=== PATIENT | male | born 1980 | race Two or more races ===

== ENCOUNTER 2019-09-24 12:48 | Inpatient (IN) | payer MEDICAID ==
[~2019-09-24] VITALS: Ht 162.6 cm; Wt 108.0 kg
[2019-09-24 16:00] VITALS: BP 155/75
[2019-09-24] MEDS ORDERED: ACET325C7 PO (16:08)
[2019-09-24] MEDS ORDERED: AMLO10TA4 PO (16:09)
[2019-09-24] MEDS ORDERED: LOSA50TA39 PO (16:10)
[2019-09-24] MEDS ORDERED: HYDR-4077 PO (16:13)
[2019-09-24] MEDS ORDERED: Z GUARD REMEDY PASTE 57 GM TUBE TOP PRN (16:15)
[2019-09-24] MEDS ORDERED: ATOR40TA PO (16:48)
--- NOTE | 2019-09-24 17:51 | NUR ---
PATIENT ADMITTED FROM [facility] POST ACUTE CVA, PATIENT IS ALERT,ORIENTED X4, NO SOB, RESP EVEN NONLABORD,SKIN WARM AND DRY TO TOUCH, AMBULATORY WITH ASSIST, RIGHT ARM WEAKNESS, NO SIGNS AND SYMPTOMS OF ASPIRATION NOTED, DR CORNEJO AWARE TO RECONSILE MEDS NO DISTRESS NOTED AT THIS TIME
[2019-09-24] MEDS ORDERED: ZOLPIDEM 5 MG TABLET PO PRN (18:00)
[2019-09-24] MEDS ORDERED: HYDROCODONE/APAP 5-325MG TABLET PO PRN (18:00)
[2019-09-24] MEDS ORDERED: ACETAMINOPHEN 325 MG TABLET PO PRN (18:00)
--- NOTE | 2019-09-24 18:08 | NUR ---
patient refused to check his body, however stated that he has no skin issues at this time.
[2019-09-24 20:17] VITALS: BP 153/79
[2019-09-24] MEDS: ATORVASTATIN 40 MG TABLET PO SCH (20:58)
[2019-09-24] MEDS: hydrALAZINE HCL 25 MG TABLET PO SCH (21:26)
--- NOTE | 2019-09-25 01:51 | NUR ---
aaox4 resting in bed upon initial rounds. VSS. Tolerated po meds well. Needs attended. Kept comfortable. Right side weakness noted. No acute distress noted. Voiding without difficulty. Siderails up for safety. Fall precautions maintained.
[2019-09-25 05:12] VITALS: BP 152/83
[2019-09-25] MEDS: hydrALAZINE HCL 25 MG TABLET PO SCH ×3 (05:46→21:28)
--- NOTE | 2019-09-25 06:47 | NUR ---
End of shift note: Quiet night. OOB to the BR with minimal assist. Voiding freely. Kept comfortable. BP 152/83 Hydralazine given. Patient asymptomatic. Slept well throughout the night.
[2019-09-25 06:57] LABS: BILIRUBIN,TOTAL 0.7 mg/dL (0.2-1.0); CREATININE 1.4 mg/dL (0.6-1.3); POTASSIUM 4.1 mmol/L (3.5-5.1); TOTAL PROTEIN, SERUM 6.8 g/dL (6.4-8.2)
--- NOTE | 2019-09-25 07:50 | NUR ---
Patient resting in bed with eyes closed, no complaints of pain at this time, no signs of distress noted, call light in reach, bed locked and in lowest position, all needs met at this time
[2019-09-25 08:00] VITALS: BP 152/79
[2019-09-25 09:16] LABS: BASOPHILS # (AUTO) 0.1 K/uL (0.0-8.0); BASOPHILS % (AUTO) 0.7 % (0.0-2.0); EOSINOPHILS # (AUTO) 0.2 K/uL (0.0-0.7); EOSINOPHILS % (AUTO) 2.4 % (0.0-7.0); HEMATOCRIT 42.8 % (36.7-47.1); HEMOGLOBIN 13.8 g/dL (12.5-16.3); LYMPHOCYTES # (AUTO) 1.4 K/uL (20.0-40.0); LYMPHOCYTES % (AUTO) 16.9 % (20.5-51.5); MEAN CORPUSCULAR HEMOGLOBIN 26.8 uug (23.8-33.4); MEAN CORPUSCULAR HGB CONC 32 g/dL (32.5-36.3); MONOCYTES # (AUTO) 0.5 K/uL (2.0-10.0); MONOCYTES % (AUTO) 5.8 % (0.0-11.0); NEUTROPHILS # (AUTO) 6.1 K/uL (1.8-8.9); NEUTROPHILS % (AUTO) 74.2 % (38.5-71.5); PLATELET COUNT (AUTO) 50 K/uL (152-348); RED BLOOD CELL COUNT(AUTO) 5.15 MIL/uL (4.06-5.63); WHITE BLOOD COUNT (AUTO) 8.2 K/uL (3.6-10.2)
[2019-09-25] MEDS: LOSARTAN POTASSIUM 50 MG TABLET PO SCH (09:23)
[2019-09-25] MEDS: AMLODIPINE 10 MG TABLET PO SCH (09:24)
[2019-09-25 10:00] LABS: BAND % (MANUAL) 2 % (0-10); EOSINOPHILS % (MANUAL) 4 % (0-8); LYMPHOCYTES % (MANUAL) 18 % (20-40); MONOCYTES % (MANUAL) 7 % (2-10); NEUTROPHILS % (MANUAL) 69 % (42-75)
[2019-09-25 16:14] VITALS: BP 130/73
--- NOTE | 2019-09-25 19:18 | NUR ---
abnormal platelets noted and MD Bell made aware with not new orders
--- NOTE | 2019-09-25 20:02 | NUR ---
Awake alert and oriented x4 Needs attended. No acute distress noted. In good spirits. Kept comfortable. VSS. Will monitor patient.
[2019-09-25 20:47] VITALS: BP 146/77
[2019-09-25] MEDS: ATORVASTATIN 40 MG TABLET PO SCH (20:53)
[2019-09-26] MEDS: hydrALAZINE HCL 25 MG TABLET PO SCH ×3 (05:33→21:12)
[2019-09-26 05:43] VITALS: BP 179/84
--- NOTE | 2019-09-26 06:45 | NUR ---
End of shift note: AAOx4 OOB to the BR with supervision. No acute distress noted. BP 179/84 HR 85 denies any headache or any discomfort. Hydralazine given. Will monitor patient's BP. Needs attended. Fall precautions maintained. Siderails up for safety.
[2019-09-26] MEDS: LOSARTAN POTASSIUM 50 MG TABLET PO SCH (09:01)
[2019-09-26] MEDS: AMLODIPINE 10 MG TABLET PO SCH (09:02)
[2019-09-26 12:45] VITALS: BP 140/72
[2019-09-26 15:25] VITALS: BP 157/65
[2019-09-26 20:09] VITALS: BP 155/77
[2019-09-26] MEDS: ATORVASTATIN 40 MG TABLET PO SCH (20:28)
--- NOTE | 2019-09-26 21:46 | NUR ---
Received pt resting in bed and watching tv. AAO x4, Upper Sorbian speaking. Able to make needs known. No acute distress noted. Denies pain/ discomfort. Due meds given as ordered. Safety measures maintained. Call light and personal items within reach. Will continue to monitor.
[2019-09-27 04:15] VITALS: BP 144/79
[2019-09-27] MEDS: hydrALAZINE HCL 25 MG TABLET PO SCH ×3 (05:38→21:47)
[2019-09-27 06:12] LABS: BILIRUBIN,TOTAL 0.4 mg/dL (0.2-1.0); CREATININE 1.2 mg/dL (0.6-1.3); PHOSPHOROUS 4.6 mg/dL (2.5-4.9); POTASSIUM 3.9 mmol/L (3.5-5.1); TOTAL PROTEIN, SERUM 6.9 g/dL (6.4-8.2)
[2019-09-27 06:32] LABS: EOSINOPHILS # (AUTO) 0.2 K/uL (0.0-0.7); LYMPHOCYTES # (AUTO) 1.1 K/uL (20.0-40.0); MEAN CORPUSCULAR HEMOGLOBIN 26.6 uug (23.8-33.4); MONOCYTES # (AUTO) 0.4 K/uL (2.0-10.0)
[2019-09-27 08:00] VITALS: BP 143/72
[2019-09-27 08:11] LABS: BASOPHILS % (AUTO) 0.7 % (0.0-2.0); EOSINOPHILS % (AUTO) 2.6 % (0.0-7.0); HEMOGLOBIN 13.2 g/dL (12.5-16.3); LYMPHOCYTES % (AUTO) 15.7 % (20.5-51.5); MEAN CORPUSCULAR HGB CONC 32 g/dL (32.5-36.3); MEAN CORPUSCULAR VOLUME 82.9 fL (73.0-96.2); MONOCYTES % (AUTO) 6.1 % (0.0-11.0); NEUTROPHILS # (AUTO) 5.1 K/uL (1.8-8.9); NEUTROPHILS % (AUTO) 74.9 % (38.5-71.5); RED BLOOD CELL COUNT(AUTO) 4.95 MIL/uL (4.06-5.63); WHITE BLOOD COUNT (AUTO) 6.8 K/uL (3.6-10.2)
[2019-09-27 08:19] LABS: PLATELET COUNT (AUTO) 10 K/uL (152-348)
[2019-09-27] MEDS: LOSARTAN POTASSIUM 50 MG TABLET PO SCH (09:28)
[2019-09-27] MEDS: AMLODIPINE 10 MG TABLET PO SCH (09:29)
[2019-09-27 11:19] LABS: EOSINOPHILS % (MANUAL) 3 % (0-8); LYMPHOCYTES % (MANUAL) 15 % (20-40); MONOCYTES % (MANUAL) 6 % (2-10); NEUTROPHILS % (MANUAL) 76 % (42-75)
--- NOTE | 2019-09-27 13:21 | NUR ---
INDIVIDUALIZED PLAN OF CARE
--- NOTE | 2019-09-27 14:08 | NUR ---
STEFANO PHQ9 Post Stroke Depression Survey: STEFANO conducted the Post Stroke Depression Survey and patient scored a level (0).
[2019-09-27 16:54] VITALS: BP 147/78
[2019-09-27 20:00] VITALS: BP 169/77
[2019-09-27 21:40] VITALS: BP 139/69
[2019-09-27] MEDS: ATORVASTATIN 40 MG TABLET PO SCH (21:47)
--- NOTE | 2019-09-27 22:00 | NUR ---
RECEIVED PATIENT IN BED, ALERT AND VERBALLY RESPONSIVE. AFEBRILE. NO RESPIRATORY DISTRESS. NO COMPLAINTS OF PAIN AT THIS TIME. PATIENT RECEIVED DUE MEDICATIONS. TOLERATED WELL. NO CHANGES IN LEVEL OF CONSCIOUSNESS OR SPEECH OBSERVED. FALL AND SAFETY PRECAUTIONS OBSERVED. WILL CONTINUE TO ATTEND AND ANTICIPATE NEEDS. WILL CONTINUE TO MONITOR PATIENT.
[2019-09-28 05:15] VITALS: BP 169/91
[2019-09-28] MEDS: hydrALAZINE HCL 25 MG TABLET PO SCH ×3 (05:19→21:58)
--- NOTE | 2019-09-28 05:20 | NUR ---
PATIENT ASLEEP AT THIS TIME, HAD LONG INTERVALS OF SLEEP THROUGH THE NIGHT. NO COMPLAINTS OF PAIN AT THIS TIME. CHECKED PATIENT'S VITAL SIGNS AND NOTED TO HAVE ELEVATED BP OF 169/91. PATIENT DENIES DIZZINESS, LIGHTHEADEDNESS, AND OTHER S/S HYPERTENSION. PROVIDED DIM, AND QUIET ENVIRONMENT. ADMINISTERED HYDRALAZINE ORDERED. WILL RECHECK BLOOD PRESSURE. ALL NEEDS ANTICIPATED AND ATTENDED. FALL AND SAFETY PRECAUTIONS OBSERVED. KEPT PATIENT WARM, DRY, AND COMFORTABLE.
[2019-09-28 06:04] VITALS: BP 154/87
--- NOTE | 2019-09-28 06:05 | NUR ---
RECHECKED VITAL SIGNS, BP:154/87 P:78 R:18 T:98.9 O2 SAT: 96% ON ROOM AIR PAIN:0/10
[2019-09-28] MEDS: LOSARTAN POTASSIUM 50 MG TABLET PO SCH (10:07)
[2019-09-28] MEDS: AMLODIPINE 10 MG TABLET PO SCH (10:07)
[2019-09-28 11:14] LABS: BASOPHILS % (AUTO) 0.6 % (0.0-2.0); EOSINOPHILS # (AUTO) 0.2 K/uL (0.0-0.7); EOSINOPHILS % (AUTO) 2.6 % (0.0-7.0); HEMATOCRIT 41.1 % (36.7-47.1); HEMOGLOBIN 13.2 g/dL (12.5-16.3); LYMPHOCYTES # (AUTO) 0.8 K/uL (20.0-40.0); LYMPHOCYTES % (AUTO) 12.1 % (20.5-51.5); MEAN CORPUSCULAR HEMOGLOBIN 26.7 uug (23.8-33.4); MEAN CORPUSCULAR HGB CONC 32 g/dL (32.5-36.3); MEAN CORPUSCULAR VOLUME 82.7 fL (73.0-96.2); MONOCYTES # (AUTO) 0.4 K/uL (2.0-10.0); MONOCYTES % (AUTO) 6.2 % (0.0-11.0); NEUTROPHILS % (AUTO) 78.5 % (38.5-71.5); RED BLOOD CELL COUNT(AUTO) 4.97 MIL/uL (4.06-5.63); WHITE BLOOD COUNT (AUTO) 6.4 K/uL (3.6-10.2)
[2019-09-28 11:25] LABS: PLATELET COUNT (AUTO) 12 K/uL (152-348)
[2019-09-28 12:00] VITALS: BP 134/74
[2019-09-28 12:27] LABS: LYMPHOCYTES % (MANUAL) 11 % (20-40); MONOCYTES % (MANUAL) 6 % (2-10); NEUTROPHILS % (MANUAL) 83 % (42-75)
--- NOTE | 2019-09-28 13:37 | NUR ---
Informed Tali Zhao STORE DIRECTOR regarding latest platelet result, and said will wait for diabetic educator to see patient. Patient remains alert, oriented x 3, not in any form of distress. No noted signs or symptoms of bleeding. Patient denies any pain or discomfort. Vital signs stable.
[2019-09-28] MEDS ORDERED: THIAMINE HCL 100 MG TABLET PO ONE (19:00)
--- NOTE | 2019-09-28 19:27 | NUR ---
Received a call from Dr. Nirmal MD made aware regarding platelet result of 12. Per no need to transfuse unless platelet is less than 10 and that she put in some orders. Endorsed accordingly to second shift supervisor nurse.
--- NOTE | 2019-09-28 19:50 | NUR ---
Awake, in bed. Denies any pain/discomforts at this time. [facility] assessment done. No change noted. Safety measures and fall precaution maintained. Continue care as planned.
[2019-09-28 20:00] VITALS: BP 143/76
[2019-09-28] MEDS: CYANOCOBALAMIN 1,000 MCG TABLET PO SCH (21:01)
[2019-09-28] MEDS: FOLIC ACID 1 MG TABLET PO SCH (21:02)
[2019-09-28] MEDS: CALCIUM CARB/VITAMIN D 500MG-200UNITS TABLET PO SCH (21:02)
[2019-09-28] MEDS: ATORVASTATIN 40 MG TABLET PO SCH (21:02)
[2019-09-28] MEDS: methylPREDNISolone SOD SUCC 125 MG/2 ML VIAL IV SCH ×2 (21:03→21:42)
--- NOTE | 2019-09-28 21:40 | NUR ---
IV started on left hand with G# 22 x 1 attempt. Pt tolerated well.
[2019-09-29 05:00] VITALS: BP 162/73
[2019-09-29] MEDS: methylPREDNISolone SOD SUCC 125 MG/2 ML VIAL IV SCH ×3 (05:14→21:36)
[2019-09-29] MEDS: hydrALAZINE HCL 25 MG TABLET PO SCH ×3 (05:20→21:41)
[2019-09-29] MEDS: PANTOPRAZOLE SODIUM 40 MG TABLET.DR PO SCH (06:00)
--- NOTE | 2019-09-29 06:14 | NUR ---
Shift End Report: VS stable. HL on LH intact and patent. No s/s of infiltration. Voided well per urinal. No complaint of pain/discomforts presented all night. All needs attended and met. Slept good. No significant event reported all night. Continue current rehab plan of care.
[2019-09-29 06:15] LABS: BASOPHILS % (AUTO) 0.2 % (0.0-2.0); EOSINOPHILS % (AUTO) 0.1 % (0.0-7.0); HEMATOCRIT 43.4 % (36.7-47.1); HEMOGLOBIN 14.1 g/dL (12.5-16.3); LYMPHOCYTES # (AUTO) 0.6 K/uL (20.0-40.0); LYMPHOCYTES % (AUTO) 9.6 % (20.5-51.5); MEAN CORPUSCULAR HGB CONC 33 g/dL (32.5-36.3); MEAN CORPUSCULAR VOLUME 82.9 fL (73.0-96.2); MONOCYTES % (AUTO) 0.8 % (0.0-11.0); NEUTROPHILS # (AUTO) 5.2 K/uL (1.8-8.9); NEUTROPHILS % (AUTO) 89.3 % (38.5-71.5); RED BLOOD CELL COUNT(AUTO) 5.24 MIL/uL (4.06-5.63); WHITE BLOOD COUNT (AUTO) 5.9 K/uL (3.6-10.2)
[2019-09-29 06:25] LABS: CREATININE 1.3 mg/dL (0.6-1.3); POTASSIUM 4.2 mmol/L (3.5-5.1)
[2019-09-29 06:37] LABS: PLATELET COUNT (AUTO) 13 K/uL (152-348)
[2019-09-29 07:30] VITALS: BP 153/79
[2019-09-29 08:35] LABS: LYMPHOCYTES % (MANUAL) 9 % (20-40); MONOCYTES % (MANUAL) 2 % (2-10); NEUTROPHILS % (MANUAL) 89 % (42-75)
[2019-09-29] MEDS: FOLIC ACID 1 MG TABLET PO SCH (09:30)
[2019-09-29] MEDS: CALCIUM CARB/VITAMIN D 500MG-200UNITS TABLET PO SCH ×2 (09:30→21:40)
[2019-09-29] MEDS: CYANOCOBALAMIN 1,000 MCG TABLET PO SCH (09:30)
[2019-09-29] MEDS: LOSARTAN POTASSIUM 50 MG TABLET PO SCH (09:32)
[2019-09-29] MEDS: AMLODIPINE 10 MG TABLET PO SCH (09:32)
[2019-09-29 17:30] VITALS: BP 146/73
[2019-09-29 21:11] VITALS: BP 150/69
[2019-09-29] MEDS: ATORVASTATIN 40 MG TABLET PO SCH (21:39)
--- NOTE | 2019-09-29 23:59 | NUR ---
awake alert and oriented x4 No acute distress noted. OOB to the BR with assist. Voiding well. Compliant with care. Needs attended. Will monitor patient. No acute distress noted. Kept comfortable.VSS.
[2019-09-30 01:10] VITALS: BP 140/68
[2019-09-30 03:54] VITALS: BP 141/67
[2019-09-30 05:56] LABS: HEMATOCRIT 37.3 % (36.7-47.1); HEMOGLOBIN 12.3 g/dL (12.5-16.3); LYMPHOCYTES # (AUTO) 0.6 K/uL (20.0-40.0); MEAN CORPUSCULAR HEMOGLOBIN 27.1 uug (23.8-33.4); MEAN CORPUSCULAR HGB CONC 33 g/dL (32.5-36.3); MEAN CORPUSCULAR VOLUME 82.1 fL (73.0-96.2); MONOCYTES # (AUTO) 0.2 K/uL (2.0-10.0); MONOCYTES % (AUTO) 1.6 % (0.0-11.0); NEUTROPHILS % (AUTO) 92.4 % (38.5-71.5); RED BLOOD CELL COUNT(AUTO) 4.55 MIL/uL (4.06-5.63); WHITE BLOOD COUNT (AUTO) 9.7 K/uL (3.6-10.2)
[2019-09-30] MEDS: methylPREDNISolone SOD SUCC 125 MG/2 ML VIAL IV SCH ×3 (05:56→21:00)
[2019-09-30] MEDS: hydrALAZINE HCL 25 MG TABLET PO SCH ×3 (05:57→21:00)
[2019-09-30 06:10] LABS: PLATELET COUNT (AUTO) 13 K/uL (152-348)
[2019-09-30] MEDS: PANTOPRAZOLE SODIUM 40 MG TABLET.DR PO SCH (06:34)
--- NOTE | 2019-09-30 06:41 | NUR ---
End of shift note: Slept at short intervals. AAOx3-4 On continous O2 @ 2L via nasal cannula pulse ox 96% Needs attended. Patient still on IV ABT tolerated as well, no ill effects noted. Kept comfortable. Voided in urinal. Small BM noted this shift via bedside commode. VSS. Addendum: 09/30/19 at 0647 by LYNDA TORREZ RN wrong patient notes!!
--- NOTE | 2019-09-30 06:47 | NUR ---
End of shift note: Quiet night. No acute distress noted. VSS. Patient on Solumedrol IV given at scheduled times via right arm heplock. No acute distress noted. Will monitor patient.
[2019-09-30 06:49] LABS: CREATININE 1.3 mg/dL (0.6-1.3); MAGNESIUM 1.8 mg/dL (1.8-2.4); PHOSPHOROUS 4.5 mg/dL (2.5-4.9); POTASSIUM 3.9 mmol/L (3.5-5.1)
[2019-09-30 07:30] VITALS: BP 133/77
[2019-09-30 08:16] LABS: LYMPHOCYTES % (MANUAL) 12 % (20-40); MONOCYTES % (MANUAL) 2 % (2-10); NEUTROPHILS % (MANUAL) 86 % (42-75)
[2019-09-30] MEDS: CALCIUM CARB/VITAMIN D 500MG-200UNITS TABLET PO SCH ×2 (09:22→20:33)
[2019-09-30] MEDS: AMLODIPINE 10 MG TABLET PO SCH (09:23)
[2019-09-30] MEDS: FOLIC ACID 1 MG TABLET PO SCH (09:23)
[2019-09-30] MEDS: LOSARTAN POTASSIUM 50 MG TABLET PO SCH (09:24)
[2019-09-30] MEDS: CYANOCOBALAMIN 1,000 MCG TABLET PO SCH (09:24)
--- NOTE | 2019-09-30 12:29 | NUR ---
Received patient awake in bed in stable condition. Speaks thai. Continue solo medrol for low platelet count. plt ct-13 MD aware. will continue monitor
[2019-09-30 15:56] VITALS: BP 137/68
--- NOTE | 2019-09-30 19:40 | NUR ---
Awake, watching TV at this time. Denies any pain/discomforts at this time. HL RH intact and patent. No s/s of on filtration. Safety measure and fall precaution maintained. Continue care as planned.
[2019-09-30] MEDS: ATORVASTATIN 40 MG TABLET PO SCH (20:32)
[2019-09-30] MEDS ORDERED: diphenhydrAMINE 50 MG/1 ML VIAL IV ONE (21:00)
[2019-09-30] MEDS ORDERED: ACETAMINOPHEN 325 MG TABLET PO ONE (21:00)
[2019-09-30 21:51] VITALS: BP 149/71
--- NOTE | 2019-09-30 23:55 | NUR ---
Obtained consent for Blood transfusion. All concerns and questions answered and explained by LEGAL SUMMER INTERN Barbara in Albanian language and patient verbalized understanding.
[2019-10-01] VITALS (9 sets, daily range): BP systolic 119–157; BP diastolic 62–79
[2019-10-01] MEDS ORDERED: ACETAMINOPHEN 325 MG TABLET PO ONE (00:45)
[2019-10-01] MEDS ORDERED: diphenhydrAMINE 50 MG/1 ML VIAL IV ONE (01:00)
--- NOTE | 2019-10-01 01:10 | NUR ---
Re start another IV site with G#20 x 1 attempt. Patient tolerated procedure well.
--- NOTE | 2019-10-01 01:21 | NUR ---
Plasma transfusion initiated as ordered, double checked with another RN. VS taken and recorded. Will monitor.
--- NOTE | 2019-10-01 01:36 | NUR ---
VS taken and recorded. No s/s of adverse reaction noted. Will continue to monitor.
[2019-10-01] MEDS: hydrALAZINE HCL 25 MG TABLET PO SCH ×2 (05:31→15:09)
--- NOTE | 2019-10-01 06:01 | NUR ---
Shift End Report: Vs stable. Slept good, Plasma transfusion transfused/completed without s/s of adverse reaction noted. Slept well. No complaint of pain presented. All needs attended and met. Continue current rehab plan of care.
[2019-10-01 06:31] LABS: CREATININE 1.4 mg/dL (0.6-1.3); MAGNESIUM 2.4 mg/dL (1.8-2.4); PHOSPHOROUS 5.1 mg/dL (2.5-4.9); POTASSIUM 4.2 mmol/L (3.5-5.1)
[2019-10-01 06:39] LABS: THYROID STIMULATING HORMONE 0.277 mIU/mL (0.358-3.740)
[2019-10-01 06:45] LABS: BASOPHILS % (AUTO) 0.1 % (0.0-2.0); HEMATOCRIT 40.9 % (36.7-47.1); HEMOGLOBIN 13.2 g/dL (12.5-16.3); LYMPHOCYTES # (AUTO) 0.5 K/uL (20.0-40.0); LYMPHOCYTES % (AUTO) 5.6 % (20.5-51.5); MEAN CORPUSCULAR HEMOGLOBIN 26.9 uug (23.8-33.4); MEAN CORPUSCULAR HGB CONC 32 g/dL (32.5-36.3); MEAN CORPUSCULAR VOLUME 83.5 fL (73.0-96.2); MONOCYTES # (AUTO) 0.2 K/uL (2.0-10.0); NEUTROPHILS # (AUTO) 8.3 K/uL (1.8-8.9); NEUTROPHILS % (AUTO) 92.3 % (38.5-71.5)
[2019-10-01 06:54] LABS: PLATELET COUNT (AUTO) 16 K/uL (152-348)
--- NOTE | 2019-10-01 06:55 | NUR ---
Lab called for Platelet count result =16. Will endorse to oncoming shift.
[2019-10-01 07:29] LABS: *RHEUMATOID FACTOR SCREEN NEGATIVE (NEGATIVE)
[2019-10-01] MEDS: AMLODIPINE 10 MG TABLET PO SCH (08:14)
[2019-10-01] MEDS: FAMOTIDINE 20 MG TABLET PO SCH ×2 (08:14→21:00)
[2019-10-01] MEDS: LOSARTAN POTASSIUM 50 MG TABLET PO SCH (08:14)
[2019-10-01] MEDS: FOLIC ACID 1 MG TABLET PO SCH (08:14)
[2019-10-01] MEDS: CALCIUM CARB/VITAMIN D 500MG-200UNITS TABLET PO SCH ×2 (08:14→21:00)
[2019-10-01] MEDS: CYANOCOBALAMIN 1,000 MCG TABLET PO SCH (08:14)
[2019-10-01] MEDS: methylPREDNISolone SOD SUCC 125 MG/2 ML VIAL IV SCH (08:15)
[2019-10-01 08:52] LABS: LYMPHOCYTES % (MANUAL) 6 % (20-40); NEUTROPHILS % (MANUAL) 94 % (42-75)
[2019-10-01 13:19] LABS: *BILIRUBIN,URIN NEGATIVE (NEGATIVE); *BLOOD, URINE NEGATIVE (NEGATIVE); *CLARITY,URINE CLEAR (CLEAR); *COLOR,URINE YELLOW (YELLOW); *KETONES,URINE NEGATIVE (NEGATIVE); *UROBILINOGEN,URINE 0.2 E.U./dl (NORMAL); LEUKOCYTE ESTERASE ,URINE NEGATIVE (NEGATIVE); NITRITE, URINE NEGATIVE (NEGATIVE); UGLUCOSE NEGATIVE (NEGATIVE)
[2019-10-01 13:33] LABS: BACTERIA,URINE NONE SEEN /HPF (NONE SEEN); RBC,URINE NONE SEEN /HPF (0-3); SQUAMOUS EPITHELIAL CELL,UR NONE SEEN /HPF (NONE SEEN); WBC,URINE 0-3 /HPF (0-3)
[2019-10-01 13:34] LABS: URIC ACID CRYSTALS,URINE MANY /HPF (NONE SEEN)
[2019-10-01 14:07] LABS: BETA-2-GLYCOPROTEIN IGG/M/A < 9 (0-25)
--- NOTE | 2019-10-01 14:48 | NUR ---
INTERDISCIPLINARY TEAM CONFERENCE
--- NOTE | 2019-10-01 15:00 | NUR ---
SW Stroke Follow Up: Social Work Stroke Resources: metal casting trades worker met with patient and provided stroke referrals such as: Stroke Family Warmline at (3-985-7-STROKE) and additional information on caring for a stroke survivor ( ). metal casting trades worker also educated patient on the signs of Stroke and to immediately call 911. metal casting trades worker provided education on the signs of stroke and provided educational packet with information: Dietary food, what stroke is, risks, emotional support, finding support, medical management, and effects of stroke.
--- NOTE | 2019-10-01 19:40 | NUR ---
Received patient awake in bed in stable condition. Speaks maori. Patient denies any pain/discomfort, no signs of distress, no SOB. All safety measure in place, and fall precautions maintained. will continue monitor
[2019-10-01] MEDS: ATORVASTATIN 40 MG TABLET PO SCH (21:00)
[2019-10-02] VITALS (7 sets, daily range): BP systolic 127–156; BP diastolic 69–87
[2019-10-02] MEDS: hydrALAZINE HCL 25 MG TABLET PO SCH ×4 (00:22→22:38)
--- NOTE | 2019-10-02 06:11 | NUR ---
Shift End Report: Quiet night, patient slept well. No signs of distress,Vitals stable, no complaints of discomfort. No complaint of pain presented. All needs attended and met. All safety measure in place, all items within patient reach. Took all medication as tolerable with water. Continue current rehab plan of care. Will endorse next shift.
[2019-10-02 07:20] LABS: BASOPHILS % (AUTO) 0.1 % (0.0-2.0); LYMPHOCYTES # (AUTO) 1.2 K/uL (20.0-40.0); MONOCYTES # (AUTO) 0.9 K/uL (2.0-10.0)
[2019-10-02 07:25] LABS: HEMATOCRIT 40.5 % (36.7-47.1); HEMOGLOBIN 13.5 g/dL (12.5-16.3); LYMPHOCYTES % (AUTO) 14.6 % (20.5-51.5); MEAN CORPUSCULAR HEMOGLOBIN 27.3 uug (23.8-33.4); MEAN CORPUSCULAR HGB CONC 33 g/dL (32.5-36.3); MEAN CORPUSCULAR VOLUME 82.1 fL (73.0-96.2); MONOCYTES % (AUTO) 10.6 % (0.0-11.0); NEUTROPHILS # (AUTO) 6.3 K/uL (1.8-8.9); NEUTROPHILS % (AUTO) 74.7 % (38.5-71.5); RED BLOOD CELL COUNT(AUTO) 4.93 MIL/uL (4.06-5.63); WHITE BLOOD COUNT (AUTO) 8.4 K/uL (3.6-10.2)
--- NOTE | 2019-10-02 07:30 | NUR ---
Received patient in bed, awake an verbally responsive, Macedonian speaking. No signs of distress noted. No SOB. No complain of Pain or discomfort. kept the call light within easy reach. Will continue to monitor.
[2019-10-02 07:32] LABS: CREATININE 1.4 mg/dL (0.6-1.3); MAGNESIUM 2.2 mg/dL (1.8-2.4); PHOSPHOROUS 3.7 mg/dL (2.5-4.9); POTASSIUM 3.8 mmol/L (3.5-5.1)
[2019-10-02 08:25] LABS: PLATELET COUNT (AUTO) 22 K/uL (152-348)
[2019-10-02] MEDS: FOLIC ACID 1 MG TABLET PO SCH (08:28)
[2019-10-02] MEDS: methylPREDNISolone SOD SUCC 125 MG/2 ML VIAL IV SCH (08:28)
[2019-10-02] MEDS: LOSARTAN POTASSIUM 50 MG TABLET PO SCH (08:28)
[2019-10-02] MEDS: CYANOCOBALAMIN 1,000 MCG TABLET PO SCH (08:29)
[2019-10-02] MEDS: FAMOTIDINE 20 MG TABLET PO SCH ×2 (08:29→21:29)
[2019-10-02] MEDS: AMLODIPINE 10 MG TABLET PO SCH (08:29)
[2019-10-02] MEDS: CALCIUM CARB/VITAMIN D 500MG-200UNITS TABLET PO SCH ×2 (08:29→21:29)
--- NOTE | 2019-10-02 16:30 | NUR ---
1 FFP transfused as ordered. tolerated well. No adverse Reaction noted.
--- NOTE | 2019-10-02 18:17 | NUR ---
Patient in bed, awake, alert and verbally responsive. No signs of distress noted. No SOB. No complain of pain or discomfort. 1FFP given as ordered. tolerated well. No adverse reaction noted. Kept clean and comfortable. kept the call light within easy reach. Will endorse to Oncoming Nurse.
[2019-10-02] MEDS: ATORVASTATIN 40 MG TABLET PO SCH (22:39)
[2019-10-03 04:18] VITALS: BP 152/91
[2019-10-03] MEDS: hydrALAZINE HCL 25 MG TABLET PO SCH ×3 (06:14→23:20)
--- NOTE | 2019-10-03 06:30 | NUR ---
Shift End Report: Patient received in bed watching TV. Patient AxOx4, no signs of distress noted, NO SOB, denies any pain or discomfort. Quiet night, patient slept well. All needs attended and met. Kept clean and comfortable. All safety measure in place, all items within patient reach. Took all medication as tolerable with water. Continue current rehab plan of care. Will endorse next shift.
[2019-10-03 06:37] LABS: BASOPHILS % (AUTO) 0.1 % (0.0-2.0); EOSINOPHILS % (AUTO) 0.1 % (0.0-7.0); HEMOGLOBIN 13.3 g/dL (12.5-16.3); LYMPHOCYTES # (AUTO) 1.2 K/uL (20.0-40.0); LYMPHOCYTES % (AUTO) 14.2 % (20.5-51.5); MEAN CORPUSCULAR HEMOGLOBIN 27.3 uug (23.8-33.4); MEAN CORPUSCULAR HGB CONC 33 g/dL (32.5-36.3); MEAN CORPUSCULAR VOLUME 82.2 fL (73.0-96.2); MONOCYTES # (AUTO) 0.9 K/uL (2.0-10.0); NEUTROPHILS # (AUTO) 6.1 K/uL (1.8-8.9); NEUTROPHILS % (AUTO) 74.6 % (38.5-71.5); RED BLOOD CELL COUNT(AUTO) 4.87 MIL/uL (4.06-5.63); WHITE BLOOD COUNT (AUTO) 8.2 K/uL (3.6-10.2)
[2019-10-03 06:40] LABS: PLATELET COUNT (AUTO) 44 K/uL (152-348)
[2019-10-03 07:00] LABS: CREATININE 1.3 mg/dL (0.6-1.3); MAGNESIUM 2.1 mg/dL (1.8-2.4); PHOSPHOROUS 3.9 mg/dL (2.5-4.9)
--- NOTE | 2019-10-03 07:44 | NUR ---
Patient noted resting in bed at this time, no complaints of pain, no signs of distress noted, all light in reach, bed locked and in lowest position, all needs met at this time
[2019-10-03 08:08] LABS: LYMPHOCYTES % (MANUAL) 15 % (20-40); MONOCYTES % (MANUAL) 12 % (2-10); NEUTROPHILS % (MANUAL) 73 % (42-75)
[2019-10-03] MEDS: CYANOCOBALAMIN 1,000 MCG TABLET PO SCH (08:15)
[2019-10-03] MEDS: methylPREDNISolone SOD SUCC 125 MG/2 ML VIAL IV SCH (08:15)
[2019-10-03] MEDS: FOLIC ACID 1 MG TABLET PO SCH (08:15)
[2019-10-03] MEDS: FAMOTIDINE 20 MG TABLET PO SCH ×2 (08:16→20:26)
[2019-10-03] MEDS: AMLODIPINE 10 MG TABLET PO SCH (08:16)
[2019-10-03] MEDS: CALCIUM CARB/VITAMIN D 500MG-200UNITS TABLET PO SCH ×2 (08:16→20:26)
[2019-10-03] MEDS: LOSARTAN POTASSIUM 50 MG TABLET PO SCH (08:17)
[2019-10-03 09:51] VITALS: BP 167/88
[2019-10-03 11:33] LABS: HAPTOGLOBIN 128 mg/dL (17-317)
[2019-10-03 12:00] VITALS: BP 167/88
[2019-10-03 17:11] VITALS: BP 145/81
[2019-10-03 20:23] VITALS: BP 141/75
[2019-10-03] MEDS: ATORVASTATIN 40 MG TABLET PO SCH (20:26)
[2019-10-04 04:00] VITALS: BP 154/88
[2019-10-04] MEDS: hydrALAZINE HCL 25 MG TABLET PO SCH ×3 (05:13→21:10)
--- NOTE | 2019-10-04 07:06 | NUR ---
Patient received resting in bed watching TV. Patient AxOx4, no signs of distress noted, NO SOB, denies any pain or discomfort. Quiet night, patient slept well. Took all medication as tolerable with water.No changes this shift. All needs attended and met. Kept clean and comfortable. All safety measure in place, all items within patient reach. Continue plan of care. Will endorse next shift.
[2019-10-04 07:08] LABS: BASOPHILS % (AUTO) 0.1 % (0.0-2.0); HEMATOCRIT 40.7 % (36.7-47.1); HEMOGLOBIN 13.3 g/dL (12.5-16.3); LYMPHOCYTES # (AUTO) 1.1 K/uL (20.0-40.0); LYMPHOCYTES % (AUTO) 13.5 % (20.5-51.5); MEAN CORPUSCULAR HEMOGLOBIN 26.8 uug (23.8-33.4); MEAN CORPUSCULAR HGB CONC 33 g/dL (32.5-36.3); MONOCYTES # (AUTO) 0.9 K/uL (2.0-10.0); MONOCYTES % (AUTO) 10.4 % (0.0-11.0); NEUTROPHILS # (AUTO) 6.4 K/uL (1.8-8.9); RED BLOOD CELL COUNT(AUTO) 4.97 MIL/uL (4.06-5.63); WHITE BLOOD COUNT (AUTO) 8.5 K/uL (3.6-10.2)
[2019-10-04] MEDS: CYANOCOBALAMIN 1,000 MCG TABLET PO SCH (08:09)
[2019-10-04] MEDS: FOLIC ACID 1 MG TABLET PO SCH (08:09)
[2019-10-04] MEDS: FAMOTIDINE 20 MG TABLET PO SCH ×2 (08:09→21:09)
[2019-10-04] MEDS: CALCIUM CARB/VITAMIN D 500MG-200UNITS TABLET PO SCH ×2 (08:09→21:09)
[2019-10-04] MEDS: methylPREDNISolone SOD SUCC 125 MG/2 ML VIAL IV SCH (08:10)
[2019-10-04] MEDS: AMLODIPINE 10 MG TABLET PO SCH (08:10)
[2019-10-04 08:42] LABS: LYMPHOCYTES % (MANUAL) 20 % (20-40); MONOCYTES % (MANUAL) 9 % (2-10); NEUTROPHILS % (MANUAL) 71 % (42-75)
[2019-10-04] MEDS: LOSARTAN POTASSIUM 50 MG TABLET PO SCH ×2 (08:46→18:03)
[2019-10-04 08:53] LABS: PLATELET COUNT (AUTO) 16 K/uL (152-348)
[2019-10-04 12:37] VITALS: BP 157/87
[2019-10-04 20:07] VITALS: BP 155/77
[2019-10-04] MEDS: ATORVASTATIN 40 MG TABLET PO SCH (21:09)
--- NOTE | 2019-10-04 21:47 | NUR ---
Received pt resting in bed and watching tv. AAO x4. No acute distress noted. Denies pain/ discomfort. Assisted to the bathroom, pt had BM. Due meds given as ordered. Safety measures maintained. Call light and personal items within reach. Will continue to monitor.
[2019-10-05] MEDS: hydrALAZINE HCL 25 MG TABLET PO SCH ×3 (05:29→22:52)
[2019-10-05 05:32] VITALS: BP 162/85
[2019-10-05 05:38] LABS: HEMOGLOBIN 13.4 g/dL (12.5-16.3); LYMPHOCYTES # (AUTO) 1.1 K/uL (20.0-40.0); MEAN CORPUSCULAR HGB CONC 33 g/dL (32.5-36.3); MEAN CORPUSCULAR VOLUME 81.9 fL (73.0-96.2); MONOCYTES # (AUTO) 0.8 K/uL (2.0-10.0); RED BLOOD CELL COUNT(AUTO) 4.95 MIL/uL (4.06-5.63)
[2019-10-05 05:39] LABS: HEMATOCRIT 40.6 % (36.7-47.1); LYMPHOCYTES % (AUTO) 11.2 % (20.5-51.5); MEAN CORPUSCULAR HEMOGLOBIN 27.1 uug (23.8-33.4); MONOCYTES % (AUTO) 7.8 % (0.0-11.0); NEUTROPHILS # (AUTO) 7.9 K/uL (1.8-8.9); PLATELET COUNT (AUTO) 53 K/uL (152-348); WHITE BLOOD COUNT (AUTO) 9.7 K/uL (3.6-10.2)
[2019-10-05 05:44] LABS: BILIRUBIN,TOTAL 0.3 mg/dL (0.2-1.0); CREATININE 1.3 mg/dL (0.6-1.3); MAGNESIUM 2.1 mg/dL (1.8-2.4); PHOSPHOROUS 4.2 mg/dL (2.5-4.9); POTASSIUM 4.3 mmol/L (3.5-5.1); TOTAL PROTEIN, SERUM 6.3 g/dL (6.4-8.2)
[2019-10-05] MEDS: FOLIC ACID 1 MG TABLET PO SCH (08:11)
[2019-10-05] MEDS: CYANOCOBALAMIN 1,000 MCG TABLET PO SCH (08:11)
[2019-10-05] MEDS: CALCIUM CARB/VITAMIN D 500MG-200UNITS TABLET PO SCH ×2 (08:11→20:34)
[2019-10-05] MEDS: LOSARTAN POTASSIUM 50 MG TABLET PO SCH ×2 (08:12→17:40)
[2019-10-05] MEDS: methylPREDNISolone SOD SUCC 125 MG/2 ML VIAL IV SCH (08:12)
[2019-10-05] MEDS: FAMOTIDINE 20 MG TABLET PO SCH ×2 (08:12→20:33)
[2019-10-05] MEDS: AMLODIPINE 10 MG TABLET PO SCH (08:12)
[2019-10-05 08:23] VITALS: BP 150/86
[2019-10-05] MEDS ORDERED: [UNRECOGNIZED DRUG - OTHER] IV ONE (15:00)
[2019-10-05] MEDS ORDERED: IMMUN GLOB IV ONE (15:00)
[2019-10-05] MEDS ORDERED: GLY IV ONE (15:00)
[2019-10-05] MEDS ORDERED: IGA OV50 IV ONE (15:00)
--- NOTE | 2019-10-05 19:29 | NUR ---
Patient remains alert, oriented x 3, not any form of distress during the shift. Due medications administered and tolerated well. Patient denies any pain or discomfort. Patient participated with PT and OT and tolerated well. Needs attended to promptly. Given Immunoglobulin IV as ordered, administered 2 bottles. No noted signs or symptoms of adverse reaction to immunoglobulin IV. Endorsed accordingly to cook night nurse.
[2019-10-05] MEDS: ATORVASTATIN 40 MG TABLET PO SCH (20:33)
[2019-10-06 02:35] VITALS: BP 157/74
[2019-10-06] MEDS: hydrALAZINE HCL 25 MG TABLET PO SCH ×3 (05:39→21:18)
[2019-10-06 05:41] VITALS: BP 160/86
[2019-10-06 06:08] LABS: BASOPHILS % (AUTO) 0.1 % (0.0-2.0); EOSINOPHILS % (AUTO) 0.1 % (0.0-7.0); HEMATOCRIT 39.1 % (36.7-47.1); HEMOGLOBIN 12.8 g/dL (12.5-16.3); LYMPHOCYTES % (AUTO) 13.3 % (20.5-51.5); MEAN CORPUSCULAR HEMOGLOBIN 26.9 uug (23.8-33.4); MEAN CORPUSCULAR HGB CONC 33 g/dL (32.5-36.3); MEAN CORPUSCULAR VOLUME 82.1 fL (73.0-96.2); MONOCYTES # (AUTO) 0.7 K/uL (2.0-10.0); MONOCYTES % (AUTO) 9.4 % (0.0-11.0); NEUTROPHILS # (AUTO) 5.9 K/uL (1.8-8.9); NEUTROPHILS % (AUTO) 77.1 % (38.5-71.5); RED BLOOD CELL COUNT(AUTO) 4.77 MIL/uL (4.06-5.63); WHITE BLOOD COUNT (AUTO) 7.6 K/uL (3.6-10.2)
[2019-10-06 06:20] LABS: CREATININE 1.3 mg/dL (0.6-1.3); POTASSIUM 3.9 mmol/L (3.5-5.1)
--- NOTE | 2019-10-06 06:34 | NUR ---
Patient received in bed watching TV, resting comfortably . AxOx4 no signs and symptoms of distress noted, no SOB, denies pain/discomfort.Due medications administered and tolerated well. Needs attended to promptly. Given Immunoglobulin IV as ordered, administered 4 bottles. No noted signs or symptoms of adverse reaction to immunoglobulin IV. Continue with plan of care. Endorse report to next shift.
[2019-10-06 06:46] LABS: PLATELET COUNT (AUTO) 22 K/uL (152-348)
[2019-10-06 08:16] LABS: LYMPHOCYTES % (MANUAL) 10 % (20-40); MONOCYTES % (MANUAL) 11 % (2-10); NEUTROPHILS % (MANUAL) 79 % (42-75)
[2019-10-06] MEDS ORDERED: AMLODIPINE 10 MG TABLET PO SCH (09:00)
[2019-10-06] MEDS: LOSARTAN POTASSIUM 50 MG TABLET PO SCH ×2 (09:04→18:45)
[2019-10-06] MEDS: AMLODIPINE 10 MG TABLET PO SCH (09:04)
[2019-10-06] MEDS: FOLIC ACID 1 MG TABLET PO SCH (09:04)
[2019-10-06] MEDS: FAMOTIDINE 20 MG TABLET PO SCH ×2 (09:04→21:16)
[2019-10-06] MEDS: CYANOCOBALAMIN 1,000 MCG TABLET PO SCH (09:04)
[2019-10-06] MEDS: CALCIUM CARB/VITAMIN D 500MG-200UNITS TABLET PO SCH ×2 (09:04→21:17)
[2019-10-06] MEDS: methylPREDNISolone SOD SUCC 125 MG/2 ML VIAL IV SCH (09:05)
--- NOTE | 2019-10-06 19:30 | NUR ---
Patient is AAO x 4. No acute distress noted, able to express needs verbally. Vital signs taken and stable for patient. NO c/o pain throughout shift. All due meds administered as scheduled and tolerated well. Patient on PT/OT therapy. Patient still noted with Right sided weakness. Patient is with stand by assist for most care. All other needs attended, safety measures in place, call light left at bed side, endorsed to next shift and will continue with care.
--- NOTE | 2019-10-06 19:45 | NUR ---
Awake,in room, sitting on the chair. No s/s of respiratory distress. Denies any pain/discomforts at thsi time. HL on LH intact and patent. No s/s of infiltration noted. Safety measures and fall precaution maintained. Continue care as planned.
[2019-10-06 20:00] VITALS: BP 164/79
[2019-10-06] MEDS: ATORVASTATIN 40 MG TABLET PO SCH (21:17)
[2019-10-07 04:31] VITALS: BP 139/76
[2019-10-07] MEDS: hydrALAZINE HCL 25 MG TABLET PO SCH ×3 (05:22→21:21)
--- NOTE | 2019-10-07 05:43 | NUR ---
Shift End Report: VS stable. Slept well. No complaint presented. All needs attended and met. No fall/injury. No significant event reported all night. Continue current rehab plan of care.
[2019-10-07 06:21] LABS: EOSINOPHILS % (AUTO) 0.1 % (0.0-7.0); HEMATOCRIT 41.3 % (36.7-47.1); HEMOGLOBIN 13.6 g/dL (12.5-16.3); LYMPHOCYTES % (AUTO) 10.6 % (20.5-51.5); MEAN CORPUSCULAR HGB CONC 33 g/dL (32.5-36.3); MEAN CORPUSCULAR VOLUME 81.9 fL (73.0-96.2); MONOCYTES # (AUTO) 0.7 K/uL (2.0-10.0); MONOCYTES % (AUTO) 7.8 % (0.0-11.0); NEUTROPHILS # (AUTO) 7.5 K/uL (1.8-8.9); NEUTROPHILS % (AUTO) 81.5 % (38.5-71.5); RED BLOOD CELL COUNT(AUTO) 5.04 MIL/uL (4.06-5.63); WHITE BLOOD COUNT (AUTO) 9.2 K/uL (3.6-10.2)
[2019-10-07 06:23] LABS: PLATELET COUNT (AUTO) 23 K/uL (152-348)
[2019-10-07 06:25] LABS: CREATININE 1.2 mg/dL (0.6-1.3)
[2019-10-07 07:45] LABS: LYMPHOCYTES % (MANUAL) 12 % (20-40); MONOCYTES % (MANUAL) 7 % (2-10); NEUTROPHILS % (MANUAL) 81 % (42-75)
[2019-10-07 08:32] VITALS: BP 112/61
[2019-10-07] MEDS: AMLODIPINE 10 MG TABLET PO SCH (08:48)
[2019-10-07] MEDS: CALCIUM CARB/VITAMIN D 500MG-200UNITS TABLET PO SCH ×2 (08:48→20:36)
[2019-10-07] MEDS: LOSARTAN POTASSIUM 50 MG TABLET PO SCH ×2 (08:49→17:24)
[2019-10-07] MEDS: CYANOCOBALAMIN 1,000 MCG TABLET PO SCH (08:49)
[2019-10-07] MEDS: FAMOTIDINE 20 MG TABLET PO SCH ×2 (08:49→20:36)
[2019-10-07] MEDS: methylPREDNISolone SOD SUCC 125 MG/2 ML VIAL IV SCH (08:49)
[2019-10-07] MEDS: FOLIC ACID 1 MG TABLET PO SCH (08:49)
[2019-10-07 11:30] VITALS: BP 122/78
[2019-10-07 16:00] VITALS: BP 131/65
--- NOTE | 2019-10-07 19:39 | NUR ---
Awake in bed during initial rounds. Denies any pain/discomforts at this time. HL on RH intact and patent. No redness/swelling noted on site. Safety measure and fall precaution maintained. Continue care as planned.
[2019-10-07 20:20] VITALS: BP 147/73
[2019-10-07] MEDS: ATORVASTATIN 40 MG TABLET PO SCH (20:36)
--- NOTE | 2019-10-08 04:49 | NUR ---
Shift End Report: Slept well. VS stable. No complaint presented all night. No fall/injury. All needs attended and met. No significant event reported all night. Continue current rehab plan of care.
[2019-10-08] MEDS: hydrALAZINE HCL 25 MG TABLET PO SCH (05:14)
[2019-10-08 05:59] LABS: CREATININE 1.2 mg/dL (0.6-1.3); POTASSIUM 3.8 mmol/L (3.5-5.1)
[2019-10-08 06:41] LABS: BASOPHILS % (AUTO) 0.1 % (0.0-2.0); EOSINOPHILS % (AUTO) 0.1 % (0.0-7.0); HEMATOCRIT 40.6 % (36.7-47.1); HEMOGLOBIN 13.4 g/dL (12.5-16.3); LYMPHOCYTES # (AUTO) 1.1 K/uL (20.0-40.0); LYMPHOCYTES % (AUTO) 13.6 % (20.5-51.5); MEAN CORPUSCULAR HGB CONC 33 g/dL (32.5-36.3); MONOCYTES # (AUTO) 0.6 K/uL (2.0-10.0); MONOCYTES % (AUTO) 7.2 % (0.0-11.0); NEUTROPHILS # (AUTO) 6.3 K/uL (1.8-8.9); RED BLOOD CELL COUNT(AUTO) 4.95 MIL/uL (4.06-5.63)
[2019-10-08 07:00] LABS: PLATELET COUNT (AUTO) 72 K/uL (152-348)
[2019-10-08 07:01] LABS: *RHEUMATOID FACTOR SCREEN NEGATIVE (NEGATIVE)
[2019-10-08 08:23] LABS: LYMPHOCYTES % (MANUAL) 10 % (20-40); MONOCYTES % (MANUAL) 6 % (2-10); NEUTROPHILS % (MANUAL) 84 % (42-75)
[2019-10-08] MEDS: methylPREDNISolone SOD SUCC 125 MG/2 ML VIAL IV SCH (08:55)
[2019-10-08] MEDS: CYANOCOBALAMIN 1,000 MCG TABLET PO SCH (09:52)
[2019-10-08] MEDS: FAMOTIDINE 20 MG TABLET PO SCH ×2 (09:52→20:51)
[2019-10-08] MEDS: CALCIUM CARB/VITAMIN D 500MG-200UNITS TABLET PO SCH ×2 (09:52→20:52)
[2019-10-08] MEDS: FOLIC ACID 1 MG TABLET PO SCH (09:52)
[2019-10-08] MEDS: AMLODIPINE 10 MG TABLET PO SCH (09:53)
[2019-10-08] MEDS: LOSARTAN POTASSIUM 50 MG TABLET PO SCH ×2 (09:53→17:16)
[2019-10-08 13:01] VITALS: BP 135/70
[2019-10-08] MEDS: hydrALAZINE HCL 50 MG TABLET PO SCH ×2 (13:57→21:45)
--- NOTE | 2019-10-08 13:57 | NUR ---
INTERDISCIPLINARY TEAM CONFERENCE
[2019-10-08] MEDS ORDERED: hydrALAZINE HCL 25 MG TABLET PO SCH (14:00)
[2019-10-08 15:29] VITALS: BP 127/64
--- NOTE | 2019-10-08 17:39 | NUR ---
Patient remains alert, oriented x 3, not in any form of distress, on room air during the shift. He denies any pain or discomfort. Peripheral line on the left hand G22 intact and patent with no signs of infection. Due medications administered and tolerated well. Patient seen and examined by Chris Batista NP in the morning, informed regarding lab results for the day with no new order. Assisted patient with his needs promptly. Patient participated with PT and OT and tolerated well. Received a call from Dr. Kinney that with plan of discharge in the morning, to inform hospitalist to include prednisone 50mg daily x 2 wks, calcium and protonix in his discharge medications.
[2019-10-08 20:04] VITALS: BP 126/47
[2019-10-08 20:24] VITALS: BP 126/47
[2019-10-08] MEDS: ATORVASTATIN 40 MG TABLET PO SCH (20:51)
--- NOTE | 2019-10-08 22:54 | NUR ---
resting in bed watching TV upon initial rounds. AAOx4 OOB to the BR with cane with supervision. Voiding freely. BM noted this shift. Tolerated po meds well. Denies any pain nor any discomfort. Hydralazine 50 mg held, BP 126/47 HR 83. Needs attended. Will monitor patient. Fall precautions maintained. Siderails up for safety.
[2019-10-09 03:11] LABS: HEPATITIS B SURFACE AB Reactive (.); HEPATITIS B SURFACE AG Negative (Negative)
[2019-10-09 04:28] VITALS: BP 161/78
[2019-10-09] MEDS: hydrALAZINE HCL 50 MG TABLET PO SCH ×2 (05:43→14:22)
--- NOTE | 2019-10-09 05:58 | NUR ---
End of the shift note: Slept well most of the shift. aaox4 BP 161/78 HR 74 Hydralazine 50 mg given as ordered. Patient asymptomatic.Will monitor patient. Patient for discharge today.
[2019-10-09 06:00] LABS: HEMOGLOBIN 13.9 g/dL (12.5-16.3); MONOCYTES # (AUTO) 0.7 K/uL (2.0-10.0); NEUTROPHILS # (AUTO) 7.8 K/uL (1.8-8.9)
[2019-10-09 06:04] LABS: BASOPHILS % (AUTO) 0.2 % (0.0-2.0); EOSINOPHILS % (AUTO) 0.4 % (0.0-7.0); HEMATOCRIT 42.3 % (36.7-47.1); LYMPHOCYTES % (AUTO) 10.8 % (20.5-51.5); MEAN CORPUSCULAR HGB CONC 33 g/dL (32.5-36.3); MEAN CORPUSCULAR VOLUME 82.4 fL (73.0-96.2); MONOCYTES % (AUTO) 7.5 % (0.0-11.0); NEUTROPHILS % (AUTO) 81.1 % (38.5-71.5); PLATELET COUNT (AUTO) 86 K/uL (152-348); RED BLOOD CELL COUNT(AUTO) 5.14 MIL/uL (4.06-5.63); WHITE BLOOD COUNT (AUTO) 9.6 K/uL (3.6-10.2)
[2019-10-09 06:16] LABS: CREATININE 1.2 mg/dL (0.6-1.3); POTASSIUM 3.9 mmol/L (3.5-5.1)
[2019-10-09] MEDS ORDERED: METOPROLOL TARTRATE 25 MG TABLET PO SCH (09:00)
[2019-10-09] MEDS: methylPREDNISolone SOD SUCC 125 MG/2 ML VIAL IV SCH (09:01)
[2019-10-09] MEDS: CYANOCOBALAMIN 1,000 MCG TABLET PO SCH (09:01)
[2019-10-09] MEDS: FOLIC ACID 1 MG TABLET PO SCH (09:02)
[2019-10-09] MEDS: LOSARTAN POTASSIUM 50 MG TABLET PO SCH (09:02)
[2019-10-09] MEDS: AMLODIPINE 10 MG TABLET PO SCH (09:02)
[2019-10-09] MEDS: FAMOTIDINE 20 MG TABLET PO SCH (09:03)
[2019-10-09] MEDS: CALCIUM CARB/VITAMIN D 500MG-200UNITS TABLET PO SCH (09:03)
[2019-10-09 09:21] VITALS: BP 128/67
[2019-10-09 11:30] VITALS: BP 146/82
[2019-10-09 14:11] VITALS: BP 146/82
[2019-10-09 14:22] VITALS: BP 146/82
--- NOTE | 2019-10-09 15:40 | NUR ---
DC TO HOME WITH HOME HEALTH. PICKED UP BY BROTHER. D/C INSTRUCTIONS GIVEN VIA GOLD NIB GRINDER VERBALIZED UNDERSTANDING. VSS IN NO ACUTE DISTRESS
== END 2019-10-09 15:05 | disposition home health service (06) | DRG 58 ==
PROVIDERS: ADMIT Physical Medicine & Rehabilitation Pain Medicine; ATTEND Physical Medicine & Rehabilitation Pain Medicine
PROC: 30233K1 Transfusion of Nonautologous Frozen Plasma into Peripheral Vein, Percutaneous Approach (ICD-10-PCS; principal; 2019-10-01)
PROC: 30233S1 Transfusion of Nonautologous Globulin into Peripheral Vein, Percutaneous Approach (ICD-10-PCS; 2019-10-05)
DX: I69.351 Hemiplegia and hemiparesis following cerebral infarction affecting right dominant side (principal); N17.0 Acute kidney failure with tubular necrosis; D69.3 Immune thrombocytopenic purpura; E66.01 Morbid (severe) obesity due to excess calories; E72.11 Homocystinuria; D68.59 Other primary thrombophilia; Z68.41 Body mass index [BMI] 40.0-44.9, adult; I10 Essential (primary) hypertension; I69.322 Dysarthria following cerebral infarction; I69.392 Facial weakness following cerebral infarction; E78.5 Hyperlipidemia, unspecified; I25.10 Atherosclerotic heart disease of native coronary artery without angina pectoris; N40.0 Benign prostatic hyperplasia without lower urinary tract symptoms
CPT/HCPCS: 36415; 70030-TC; 76700; 82747; 83010; 83550; 83615; 83735; 84100; 84443; 85014; 85025; 85305; 85520; 85610; 85651; 85730; 86430; 86706; 86803; 86880; 86900; 86901; 87340; 87806; A4663; J1200; J1569; J2930; J7040; J7050; P9016-BL; P9017-BL